=== PATIENT | female | born 1995 | race Hispanic/Latino ===

== ENCOUNTER 2020-05-13 18:17 | Emergency (ER) | payer SELFPAY ==
[2020-05-13] MEDS ORDERED: ACETAMINOPHEN 500 MG TAB ONE (19:03)
[2020-05-13] MEDS ORDERED: CLINDAMYCIN 900MG/D5W 900 MG/50 ML IVPB IV ONE (19:25)
[2020-05-13] MEDS ORDERED: NA CHLORIDE 0.9% 2,000 ML ONE (19:25)
[2020-05-13] MEDS ORDERED: CEFTRIAXONE/SWI 1gm 1 GM/10 ML SYR ONE (19:25)
[2020-05-13] MEDS ORDERED: dexAMETHasone 10 MG/ML VIAL ONE (19:25)
[2020-05-13 19:49] LABS: Basophils % 0.2 % (0-1.3); Hematocrit 35.4 % (36.0-45.0); Lymphocytes % 4.6 % (15.3-44.8); MPV 8.8 fL (7.6-11.3); RBC Red Blood Cell Count 4.74 M/uL (3.86-4.86)
--- NOTE | 2020-05-13 19:57 | RAD REPORT ---
EXAM DESCRIPTION: CT - Soft Tissue Neck W/Contr CLINICAL HISTORY: PAIN Pain, swelling, fever COMPARISON: No comparisons TECHNIQUE All CT scans are performed using dose optimization technique as appropriate and may includ e automated exposure control or mA/KV adjustment according to patient size. FINDINGS: Significant enlargement of the palatine tonsils and lingual tonsils noted. No peritonsilla r abscess is seen. Multiple enlarged cervical lymph nodes are present, the largest at level II bilate rally on the right measuring 14 mm in short axis and on the left measuring 13 mm in short axis. No prevertebral/retropharyngeal abscess. IMPRESSION: Significant enlargement of the palatine and lingual tonsils without peritonsillar absces s. No prevertebral/retropharyngeal abscess. Enlarged bilateral jugular chain lymph nodes are present suggesting cervical lymphadenitis.
[2020-05-13 20:01] LABS: ALT/SGPT 20 U/L (12-78); AST/SGOT 12 U/L (15-37); Albumin 3.3 g/dL (3.4-5.0); Alkaline Phosphatase 73 U/L (45-117); BUN Blood Urea Nitrogen 6 mg/dL (7-18); Bicarbonate 21 mmol/L (21-32); Bilirubin Total 0.4 mg/dL (0.2-1.0); Glucose Level 124 mg/dL (74-106); Potassium 3.5 mmol/L (3.5-5.1); Protein, Total 8.2 g/dL (6.4-8.2); Sodium Level 134 mmol/L (136-145)
--- NOTE | 2020-05-13 20:04 | RAD REPORT ---
EXAM DESCRIPTION: RAD - Chest Single View - 05/13/2020 7:57 pm CLINICAL HISTORY: fever;Pain Chest pain. COMPARISON: No comparisons FINDINGS: Portable technique limits examination quality. The lungs are grossly clear. The heart is normal in size. No displaced fractures. IMPRESSION: No acute intrathoracic process suspected.
--- NOTE | 2020-05-13 20:37 | ER ---
Nurse's Notes [facility] Name: Alka Rao Age: 24 yrs Sex: Female : 1995 Arrival Date: 05/13/2020 Time: 18:37 Bed 8 Private MD: Diagnosis: Acute tonsillitis;Streptococcal tonsillitis Presentation: 05/13 18:41 Chief complaint: Patient states: Sore throat, nausea chills, fatigue since last night. ca1 Denies cough. Coronavirus screen: Client denies travel out of the [place] in the last 14 days. chills, fatigue, nausea, sore throat, Client presents with at least one sign or symptom that may indicate coronavirus-19. Standard/surgical mask placed on the client. Provider contacted for isolation considerations. Ebola Screen: Patient negative for fever greater than or equal to 101.5 degrees Fahrenheit, and additional compatible Ebola Virus Disease symptoms Patient denies exposure to infectious person. Patient denies travel to an Ebola-affected area in the 21 days before illness onset. No symptoms or risks identified at this time. Initial Sepsis Screen:. Initial Sepsis Screen:. Risk Assessment: Do you want to hurt yourself or someone else? Patient reports no desire to harm self or others. Onset of symptoms was May 13, 2020. 18:41 Acuity: SHELIA 2 ca1 18:41 Method Of Arrival: Ambulatory ca1 18:49 Initial Sepsis Screen: Does the patient meet any 2 criteria? Temp <36.0*C (96.8*F)) or ca1 > 38.3*C (100.9*F). HR > 90 bpm. Does the patient have a suspected source of infection? No. Patient's initial sepsis screen is negative. Triage Assessment: 18:49 General: Appears in no apparent distress. comfortable, Behavior is calm, cooperative, ca1 appropriate for age. Pain: Complains of pain in throat. EENT: Throat is reddened has enlarged tonsils bilaterally. 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 - Social history:: Smoking status: Patient denies any tobacco usage or history of. Screenin:59 Abuse screen: Denies threats or abuse. Denies injuries from another. Nutritional rv screening: No deficits noted. Tuberculosis screening: No symptoms or risk factors identified. Fall Risk None identified. Assessment: 18:50 Reassessment:. EENT: Throat is reddened has enlarged tonsils bilaterally Notified Dr. lee Caba. . 19:59 Respiratory: Airway is patent Respiratory effort is even, unlabored, Breath sounds are rv clear bilaterally. 20:47 Reassessment: Patient and/or family updated on plan of care and expected duration. Pain rv level reassessed. Patient is alert, oriented x 3, equal unlabored respirations, skin warm/dry/pink. Patient states feeling better. Patient states symptoms have improved. Neuro: Level of Consciousness is awake, alert, obeys commands, Oriented to person, place, time, situation. Cardiovascular: Patient's skin is warm and dry. Respiratory: Airway is patent Respiratory effort is even, unlabored. Vital Signs: 18:41 BP 131 / 88; Pulse 162; Resp 20; Temp 103.2(O); Pulse Ox 100% on R/A; Weight 77.11 kg ca1 (M); Height 5 ft. 4 in. (162.56 cm) (R); 18:55 Pulse 145; ca1 19:30 BP 112 / 62; Pulse 137; Resp 25; Temp 102(O); Pulse Ox 100% on R/A; rv 20:46 BP 112 / 79; Pulse 123; Resp 18; Temp 99.5(O); Pulse Ox 99% on R/A; rv 18:41 Body Mass Index 29.18 (77.11 kg, 162.56 cm) ca1 ED Course: 18:37 Patient arrived in ED. ca1 18:43 Triage completed. ca1 18:43 Arm band placed on right wrist. ca1 18:51 Itz Caba MD is Attending Physician. patricia 18:57 Radiology exam delayed due to IV insertion attempt and/or patient not having vm2 appropriate IV at this time. 19:25 Inserted saline lock: 18 gauge in right antecubital area, using aseptic technique. rv Blood collected. 19:25 Initial lab(s) drawn, by me, sent to lab. First set of blood cultures drawn by me. rv 19:41 Zander Palumbo RN is Primary Nurse. rv 19:44 Soft Tissue Neck W/Contr CT In Process Unspecified. EDMS 19:45 Second set of blood cultures drawn by me. rv 19:58 Chest Single View XRAY In Process Unspecified. EDMS 19:59 Patient has correct armband on for positive identification. Bed in low position. Call rv light in reach. Side rails up X 1. Pulse ox on. NIBP on. 20:03 Notified ED physician of a critical lab result(s). WBC 20.8. sg 20:35 Niesha Morrow MD is Referral Physician. patricia Administered Medications: 18:55 Drug: Tylenol 1000 mg Route: PO; ca1 20:52 Follow up: Response: No adverse reaction; Marked relief of symptoms; Temperature is rv decreased 19:09 CANCELLED (Duplicate Order): Tylenol 1000 mg PO once sv 19:30 Drug: NS 0.9% 1000 ml Route: IV; Rate: 1 bolus; Site: right antecubital; rv 20:52 Follow up: IV Status: Completed infusion; IV Intake: 1000ml rv 19:30 Drug: Rocephin - (cefTRIAXone) 1 grams Route: IVPB; Infused Over: 30 mins; Site: right rv antecubital; 20:52 Follow up: Response: No adverse reaction rv 19:30 Drug: Clindamycin 900 mg Route: IVPB; Infused Over: 30 mins; Site: right antecubital; rv 20:52 Follow up: IV Status: Completed infusion; IV Intake: 50ml rv 19:30 Drug: Decadron - Dexamethasone 10 mg Route: IVP; Site: right antecubital; rv 20:51 Follow up: Response: Marked relief of symptoms rv 19:45 Drug: NS 0.9% 1000 ml Route: IV; Rate: 1 bolus; Site: right antecubital; rv 20:51 Follow up: IV Status: Completed infusion; IV Intake: 1000ml rv Intake: 20:51 IV: 1000ml; Total: 1000ml. rv 20:52 IV: 50ml; Total: 1050ml. rv 20:52 IV: 1000ml; Total: 2050ml. rv Outcome: 20:36 Discharge ordered by . patricia 20:52 Patient left the ED. rv Signatures: Dispatcher [employer] EDMS Acevedo, Ilir, RN RN Itz Cm MD MD cha McGuire, Stacia [facility] Zander Palumbo, RN RN rv Yessica, KAYLYNN Gallagher RN ca1 Luisa, Niesha CHAIDEZ sv
--- NOTE | 2020-05-13 20:37 | EDPHYS ---
Physician Documentation [facility] Name: Alka Rao Age: 24 yrs Sex: Female : 1995 Arrival Date: 05/13/2020 Time: 18:37 Bed 8 Private MD: ED Physician Itz Caba HPI: 05/13 20:29 This 24 yrs old Female presents to ER via Ambulatory with complaints of Sore patricia Throat. 20:29 The patient presents with sore throat. The patient describes throat pain as burning, patricia constant. Onset: The symptoms/episode began/occurred 2 day(s) ago. Severity of symptoms: At their worst the symptoms were mild, moderate, in the emergency department the symptoms are unchanged. Modifying factors: The symptoms are alleviated by fluids, the symptoms are aggravated by swallowing. Associated signs and symptoms: Pertinent positives: chills, dysphagia, headache, Sore throat. The patient has not experienced similar symptoms in the past. 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 - Social history:: Smoking status: Patient denies any tobacco usage or history of. ROS: 20:31 Eyes: Negative for injury, pain, redness, and discharge, Neck: Negative for injury, patricia pain, and swelling, Cardiovascular: Negative for chest pain, palpitations, and edema, Respiratory: Negative for shortness of breath, cough, wheezing, and pleuritic chest pain, Abdomen/GI: Negative for abdominal pain, nausea, vomiting, diarrhea, and constipation, Back: Negative for injury and pain, : Negative for injury, bleeding, discharge, and swelling, MS/Extremity: Negative for injury and deformity, Skin: Negative for injury, rash, and discoloration, Neuro: Negative for headache, weakness, numbness, tingling, and seizure, Psych: Negative for depression, anxiety, suicide ideation, homicidal ideation, and hallucinations, Allergy/Immunology: Negative for hives, rash, and allergies, Endocrine: Negative for neck swelling, polydipsia, polyuria, polyphagia, and marked weight changes, Hematologic/Lymphatic: Negative for swollen nodes, abnormal bleeding, and unusual bruising. 20:31 Constitutional: Positive for chills, fever, malaise. 20:31 ENT: Positive for rhinorrhea, sore throat. Exam: 20:31 Head/Face: Normocephalic, atraumatic. Eyes: Pupils equal round and reactive to light, patricia extra-ocular motions intact. Lids and lashes normal. Conjunctiva and sclera are non-icteric and not injected. Cornea within normal limits. Periorbital areas with no swelling, redness, or edema. Neck: Trachea midline, no thyromegaly or masses palpated, and no cervical lymphadenopathy. Supple, full range of motion without nuchal rigidity, or vertebral point tenderness. No Meningismus. Chest/axilla: Normal chest wall appearance and motion. Nontender with no deformity. No lesions are appreciated. Cardiovascular: Regular rate and rhythm with a normal S1 and S2. No gallops, murmurs, or rubs. Normal PMI, no JVD. No pulse deficits. Respiratory: Lungs have equal breath sounds bilaterally, clear to auscultation and percussion. No rales, rhonchi or wheezes noted. No increased work of breathing, no retractions or nasal flaring. Abdomen/GI: Soft, non-tender, with normal bowel sounds. No distension or tympany. No guarding or rebound. No evidence of tenderness throughout. Back: No spinal tenderness. No costovertebral tenderness. Full range of motion. Skin: Warm, dry with normal turgor. Normal color with no rashes, no lesions, and no evidence of cellulitis. MS/ Extremity: Pulses equal, no cyanosis. Neurovascular intact. Full, normal range of motion. Neuro: Awake and alert, GCS 15, oriented to person, place, time, and situation. Cranial nerves II-XII grossly intact. Motor strength 5/5 in all extremities. Sensory grossly intact. Cerebellar exam normal. Normal gait. Psych: Awake, alert, with orientation to person, place and time. Behavior, mood, and affect are within normal limits. 20:31 ENT: External ear(s): are unremarkable, no acute changes, TM's: are normal, no acute changes, Nose: is normal, no acute changes, Posterior pharynx: Tonsils: bilaterally enlarged, with erythema, with exudate, Uvula: edematous, swelling, that is moderate, erythema, that is moderate, exudate, that is moderate. 20:31 Neck: External neck: is normal, no acute changes, C-spine: appears grossly normal, no acute changes, Thyroid: appears normal, no acute changes, Trachea: is midline with no obvious abnormalities, no acute changes, ROM/movement: is normal, no acute changes, Lymph nodes: lymphadenopathy is appreciated, anterior cervical nodes. 20:31 Cardiovascular: Rate: tachycardic, Rhythm: regular, Pulses: Pulses are 4+ in bilateral radial, brachial, femoral, popliteal, posterior tibial and and dorsalis pedis arteries.. Heart sounds: normal, Edema: is not appreciated, JVD: is not appreciated. 20:31 Musculoskeletal/extremity: DVT Exam: No signs of deep vein thrombosis. no pain, no swelling, no tenderness, negative Homans' sign noted on exam, no appreciated bluish discoloration, no erythema, no increased warmth. Vital Signs: 18:41 BP 131 / 88; Pulse 162; Resp 20; Temp 103.2(O); Pulse Ox 100% on R/A; Weight 77.11 kg ca1 (M); Height 5 ft. 4 in. (162.56 cm) (R); 18:55 Pulse 145; ca1 19:30 BP 112 / 62; Pulse 137; Resp 25; Temp 102(O); Pulse Ox 100% on R/A; rv 20:46 BP 112 / 79; Pulse 123; Resp 18; Temp 99.5(O); Pulse Ox 99% on R/A; rv 18:41 Body Mass Index 29.18 (77.11 kg, 162.56 cm) ca1 MDM: 18:51 Patient medically screened. patricia 20:31 Differential diagnosis: pneumonia epiglottitis, group A strep tonsillitis, laryngitis, patricia ana's angina, neisseria gonorrheoeae pharangitis, pharyngitis, tonsillitis, upper respiratory infection. Data reviewed: vital signs, nurses notes, lab test result(s), CBC, electrolytes, radiologic studies, CT scan, plain films. Data interpreted: news producer: not applicable for this patient encounter. rate is 137 beats/min, rhythm is regular. Test interpretation: by ED physician or midlevel provider: ECG. Counseling: I had a detailed discussion with the patient and/or guardian regarding: the historical points, exam findings, and any diagnostic results supporting the discharge/admit diagnosis, lab results, the need for outpatient follow up, an ENT specialist, a family practitioner. 05/13 18:54 Order name: CBC with Diff [facility] 05/13 18:54 Order name: Comprehensive Metabolic Panel; Complete Time: 20:27 [facility] 05/13 18:54 Order name: Blood Culture Adult (2) [facility] 05/13 18:54 Order name: Urine Culture [facility] 05/13 18:54 Order name: Strep; Complete Time: 20:27 [facility] 05/13 18:54 Order name: Soft Tissue Neck W/Contr CT; Complete Time: 20:27 [facility] 05/13 18:54 Order name: Chest Single View XRAY; Complete Time: 20:27 [facility] 05/13 20:35 Order name: Urine Dipstick--Ancillary (enter results) ar5 05/13 20:36 Order name: Urine Dipstick-Ancillary EDMS 05/13 20:44 Order name: Manual Differential EDMS Administered Medications: 18:55 Drug: Tylenol 1000 mg Route: PO; ca1 20:52 Follow up: Response: No adverse reaction; Marked relief of symptoms; Temperature is rv decreased 19:09 CANCELLED (Duplicate Order): Tylenol 1000 mg PO once sv 19:30 Drug: NS 0.9% 1000 ml Route: IV; Rate: 1 bolus; Site: right antecubital; rv 20:52 Follow up: IV Status: Completed infusion; IV Intake: 1000ml rv 19:30 Drug: Rocephin - (cefTRIAXone) 1 grams Route: IVPB; Infused Over: 30 mins; Site: right rv antecubital; 20:52 Follow up: Response: No adverse reaction rv 19:30 Drug: Clindamycin 900 mg Route: IVPB; Infused Over: 30 mins; Site: right antecubital; rv 20:52 Follow up: IV Status: Completed infusion; IV Intake: 50ml rv 19:30 Drug: Decadron - Dexamethasone 10 mg Route: IVP; Site: right antecubital; rv 20:51 Follow up: Response: Marked relief of symptoms rv 19:45 Drug: NS 0.9% 1000 ml Route: IV; Rate: 1 bolus; Site: right antecubital; rv 20:51 Follow up: IV Status: Completed infusion; IV Intake: 1000ml rv Disposition: 05/13/20 20:36 Discharged to Home. Impression: Acute tonsillitis, Streptococcal tonsillitis. - Condition is Stable. - Discharge Instructions: Fever, Adult, Tonsillitis, Tonsillitis, [id number]. - Prescriptions for Clindamycin HCl 300 mg Oral Capsule - take 1 capsule by ORAL route every 6 hours for 10 days; 40 capsule. Medrol (Aneudy) 4 mg Oral Tablets, Dose Pack - take 1 tablet by ORAL route as directed - follow package instructions; 1 packet. - Work release form, Medication Reconciliation Form, Thank You Letter, Antibiotic Education, Prescription Opioid Use form. - Follow up: Private Physician; When: 2 - 3 days; Reason: Recheck today's complaints, Continuance of care, Re-evaluation by your physician. Follow up: Niesha Morrow MD; When: 2 - 3 days; Reason: Recheck today's complaints, Re-evaluation by your physician. - Problem is new. - Symptoms have improved. Signatures: Dispatcher [employer] [facility] Itz Caba MD MD cha Vicente, Ronaldo RN RN jean-paul Acob, KAYLYNN Gallagher RN, Stephanie RN sv Corrections: (The following items were deleted from the chart) 19:09 18:54 Tylenol 1000 mg PO once ordered. patricia 20:44 19:58 CBC Smear Scan ordered. [facility] 20:52 20:36 05/13/2020 20:36 Discharged to Home. Impression: Acute tonsillitis; Streptococcal rv tonsillitis. Condition is Stable. Forms are Medication Reconciliation Form, Thank You Letter, Antibiotic Education, Prescription Opioid Use. Follow up: Private Physician; When: 2 - 3 days; Reason: Recheck today's complaints, Continuance of care, Re-evaluation by your physician. Follow up: Niesha Morrow; When: 2 - 3 days; Reason: Recheck today's complaints, Re-evaluation by your physician. Problem is new. Symptoms have improved. patricia
[2020-05-13 20:51] LABS: Urine Blood NEGATIVE (NEG); Urine Glucose NEGATIVE (NEG); Urine Protein NEGATIVE (NEG); Urine Specific Gravity <1.005 (1.005-1.030)
[2020-05-13 21:05] VITALS: BP 112/79; TEMP 99.5; O2SAT 99
[2020-05-13 22:06] LABS: Blood Morphology Comment NOT SEEN (NOT SEEN); Platelet Estimate ADEQ
== END 2020-05-13 20:52 | disposition home or self-care (01) ==
LOC: ER 18:17
DX: J03.00 Acute streptococcal tonsillitis, unspecified (principal)
CPT/HCPCS: 36415; 70491; 71045; 80053; 81003; 82565; 85025; 87040; 87081; 87086; 87088; J0696; J1100; J7030; Q9967

== ENCOUNTER 2022-04-27 15:07 | Emergency (ER) | payer OTHER, SELFPAY ==
--- NOTE | 2022-04-27 17:11 | RAD REPORT ---
EXAM DESCRIPTION: CT - [id number] - 04/27/2022 5:00 pm CLINICAL HISTORY: Trauma, head and neck injury. head injury COMPARISON: Soft Tissue Neck W/Contr dated 05/13/2020; Facial Bones W/ Mpr dated 04/27/2022 TECHNIQUE: Axial 5 mm thick images of the head were obtained. Axial 2 mm thick images of the cervical spine were obtained with sagittal and coronal reconstruction images generated and reviewed. All CT scans are performed using dose optimization technique as appropriate and may include automated exposure control or mA/KV adjustment according to patient size. FINDINGS: CT HEAD WITHOUT CONTRAST: No acute hemorrhage, hydrocephalus or extra-axial collection is identified.No areas of brain edema or midline shift. The paranasal sinuses and mastoids are clear.The calvarium is intact. CT CERVICAL SPINE WITHOUT CONTRAST: No fracture or subluxation.No prevertebral soft tissues swelling is identified. IMPRESSION: No acute intracranial or cervical spine findings.
--- NOTE | 2022-04-27 17:15 | RAD REPORT ---
EXAM DESCRIPTION: CT - CTFB CLINICAL HISTORY: Facial trauma, blunt COMPARISON: No comparisons TECHNIQUE: Axial 2 mm thick images of the face were obtained with sagittal and coronal reconstructio n images. All CT scans are performed using dose optimization technique as appropriate and may include automated exposure control or mA/KV adjustment according to patient size. FINDINGS: No acute facial bone fracture is seen.The mandible is intact. The globes and orbital contents are grossly unremarkable.The paranasal sinuses and mastoids are clear . IMPRESSION: Negative for facial bone fracture.
[2022-04-27] MEDS ORDERED: HYDROCODONE/APAP 7.5/325 MG TAB ONE (17:32)
[2022-04-27] MEDS ORDERED: IBUPROFEN 400 MG TAB ONE (17:32)
[2022-04-27 19:07] VITALS: TEMP 98.1
[2022-04-27 19:10] VITALS: BP 124/80; O2SAT 100
--- NOTE | 2022-04-29 09:38 | ER ---
Nurse's Notes [facility] Name: Alka Rao Age: 26 yrs Sex: Female : 1995 Arrival Date: 04/27/2022 Time: 15:10 Bed 20 Private MD: Diagnosis: Unspecified injury of head, initial encounter;Abrasion of unspecified part of head, initial encounter Presentation: 04/27 15:38 Chief complaint: Patient states: pt fall x 2 days ago while intoxicated. injuries to scott forehead, bridge of nose, left side of nose upper lip. pt having headaches and have nausea. Care prior to arrival: None. Mechanism of Injury: Fall. Trauma event details: Injury occurred: April 25, 2022. 15:38 Acuity: SHELIA 3 scott 15:38 Method Of Arrival: Ambulatory scott Historical: - Allergies: 17:35 No Known Allergies; bm7 - Home Meds: 17:35 None [Active]; bm7 - PMHx: 17:35 None; bm7 - PSHx: 17:35 None; bm7 - Immunization history: Last tetanus immunization: unknown. - Social history:: Smoking status: Patient reports the use of cigarette tobacco products, denies chronic smoking, but will smoke occasionally, Patient uses alcohol, only on a social basis. Screenin:35 Abuse screen: Denies threats or abuse. Nutritional screening: No deficits noted. bm7 Tuberculosis screening: No symptoms or risk factors identified. Fall Risk None identified. Assessment: 15:38 General: Appears in no apparent distress. Behavior is calm, cooperative. scott 17:34 Pain: Complains of pain in face. Neuro: No deficits noted. Lynch Agitation-Sedation bm7 Scale (RASS): 0 - Alert and Calm Level of Consciousness is awake, alert, obeys commands, Oriented to person, place, time, situation, Glass Crusher are equal bilaterally Moves all extremities. Speech is normal, Facial symmetry appears normal. Cardiovascular: No deficits noted. Respiratory: No deficits noted. GI: No deficits noted. No signs and/or symptoms were reported involving the gastrointestinal system. : No deficits noted. No signs and/or symptoms were reported regarding the genitourinary system. EENT: No deficits noted. No signs and/or symptoms were reported regarding the EENT system. Derm: Skin has lesions on to bridge of nose. Musculoskeletal: No deficits noted. No signs and/or symptoms reported regarding the musculoskeletal system. Vital Signs: 15:55 BP 146 / 81; Pulse 92; Resp 19; Temp 98.1(T); Pulse Ox 96% on R/A; Weight 95.25 kg; sctot Height 5 ft. 3 in. (160.02 cm); 17:09 BP 124 / 80; Pulse 82; Resp 16; Pulse Ox 100% on R/A; bm7 15:55 Body Mass Index 37.20 (95.25 kg, 160.02 cm) scott [place] Coma Score: 16:25 Eye Response: spontaneous(4). Verbal Response: oriented(5). Motor Response: obeys cp commands(6). Total: 15. ED Course: 15:10 Patient arrived in ED. ja2 15:13 Itz Thompson PA is PHCP. cp 15:13 Andrea Jamison MD is Attending Physician. cp 15:40 Triage completed. scott 17:01 Carolin Cortez, KAYLYNN is Primary Nurse. bm7 17:02 CT Head C Spine In Process Unspecified. EDMS 17:02 CT Facial Bones W/O Con In Process Unspecified. EDMS 17:24 Jagjit Smith MD is Referral Physician. cp 17:35 Patient has correct armband on for positive identification. Call light in reach. bm7 17:35 Client placed on continuous cardiac and pulse oximetry monitoring. NIBP monitoring bm7 applied. 17:35 No provider procedures requiring assistance completed. Patient did not have IV access bm7 during this emergency room visit. Administered Medications: 17:25 Not Given (Physician Discretion): Tylenol 650 mg PO once bm7 17:25 Drug: Ibuprofen 800 mg Route: PO; bm7 17:36 Follow up: Response: No adverse reaction bm7 17:26 Drug: Hydrocodone-Acetaminophen (7.5 mg-325 mg) 1 tabs Route: PO; bm7 17:36 Follow up: Response: No adverse reaction bm7 Medication: 17:35 VIS not applicable for this client. bm7 Outcome: 17:27 Discharge ordered by MD. cp 17:36 Patient left the ED. bm7 Signatures: Dispatcher [employer] EDAL Itz Thompson PA PA cp Carolin Cortez, RN RN bm7 Milena Mustafa ja2 Au-Stager, Gemma, RN RN scott
--- NOTE | 2022-04-29 09:38 | EDPHYS ---
Physician Documentation [facility] Name: Alka Rao Age: 26 yrs Sex: Female : 1995 Arrival Date: 04/27/2022 Time: 15:10 Bed 20 Private MD: ED Physician Andrea Jamison HPI: 04/27 16:25 This 26 yrs old Female presents to ER via Ambulatory with complaints of Fall cp Injury. 16:25 The patient or guardian reports injury. cp 16:25 The complaints affect the forehead, nose and mouth. Context of injury: reported fall cp while intoxicated 2 days ago, unsure of losing consciousness. Associated signs and symptoms: Pertinent positives: headache, Pertinent negatives: nausea, neck pain, vomiting. Historical: - Allergies: 17:35 No Known Allergies; bm7 - Home Meds: 17:35 None [Active]; bm7 - PMHx: 17:35 None; bm7 - PSHx: 17:35 None; bm7 - Immunization history: Last tetanus immunization: unknown. - Social history:: Smoking status: Patient reports the use of cigarette tobacco products, denies chronic smoking, but will smoke occasionally, Patient uses alcohol, only on a social basis. ROS: 16:30 Constitutional: Negative for body aches, chills, fever, poor PO intake. cp 16:30 Eyes: Negative for injury, pain, redness, and discharge. cp 16:30 ENT: Negative for drainage from ear(s), ear pain, sore throat, difficulty swallowing, difficulty handling secretions. 16:30 Cardiovascular: Negative for chest pain, palpitations. 16:30 Respiratory: Negative for cough, shortness of breath, wheezing. 16:30 Abdomen/GI: Negative for abdominal pain, nausea, vomiting, and diarrhea. 16:30 Back: Negative for pain at rest, pain with movement. 16:30 Neuro: Positive for headache, Negative for altered mental status, weakness. 16:30 All other systems are negative. Exam: 16:35 Constitutional: The patient appears in no acute distress, alert, awake, non-toxic, well cp developed, well nourished. 16:35 Head/face: Noted is abrasion(s), that are moderate, of the forehead, nose and mouth, cp swelling, that is mild, of the forehead, nose and mouth, tenderness, that is moderate, of the forehead, nose and mouth, Sinus tenderness, that is mild, is located over the left maxillary sinus. 16:35 Eyes: Periorbital structures: swelling, that is mild, on the left infraorbital, Pupils: equal, round, and reactive to light and accomodation, Extraocular movements: intact throughout, Conjunctiva: normal, no exudate, no injection, Sclera: no appreciated abnormality, Lids and lashes: appear normal, bilaterally. 16:35 ENT: External ear(s): are unremarkable, Ear canal(s): are normal, clear, TM's: dullness, bilaterally, Nose: External nose: swelling is noted, bridge of nose, bleeding, is not appreciated, Mouth: Lips: moist, Oral mucosa: moist, Posterior pharynx: Airway: no evidence of obstruction, patent. 16:35 Neck: C-spine: vertebral tenderness, is not appreciated, crepitus, is not appreciated, ROM/movement: is normal, is supple, without pain, no range of motions limitations, no nuchal rigidity. 16:35 Chest/axilla: Inspection: normal. 16:35 Cardiovascular: Rate: normal, Rhythm: regular. 16:35 Respiratory: the patient does not display signs of respiratory distress, Respirations: normal, no use of accessory muscles, no retractions, labored breathing, is not present, Breath sounds: are clear throughout, no decreased breath sounds, no stridor, no wheezing. 16:35 Abdomen/GI: Exam negative for discomfort, distension, guarding, Inspection: abdomen appears normal. 16:35 Back: pain, is absent, ROM is normal. 16:35 Musculoskeletal/extremity: Exam is negative for decreased range of motion, deformity, injury. 16:35 Neuro: Orientation: to person, place \T\ time. Mentation: is normal, Cerebellar function: is grossly normal, Motor: moves all fours, strength is normal, Sensation: is normal, Gait: is steady, at a normal pace, without difficulty. Vital Signs: 15:55 BP 146 / 81; Pulse 92; Resp 19; Temp 98.1(T); Pulse Ox 96% on R/A; Weight 95.25 kg; scott Height 5 ft. 3 in. (160.02 cm); 17:09 BP 124 / 80; Pulse 82; Resp 16; Pulse Ox 100% on R/A; bm7 15:55 Body Mass Index 37.20 (95.25 kg, 160.02 cm) scott Jose Coma Score: 16:25 Eye Response: spontaneous(4). Verbal Response: oriented(5). Motor Response: obeys cp commands(6). Total: 15. MDM: 17:10 Patient medically screened. cp 17:15 Differential diagnosis: Contusion of Hematoma on Intracranial bleed- Concussion cp cerebral contusion, facial bone fracture, nasal bone fracture, cellulitis. 17:27 Data reviewed: vital signs, nurses notes, radiologic studies, plain films. cp 17:27 Counseling: I had a detailed discussion with the patient and/or guardian regarding: the cp historical points, exam findings, and any diagnostic results supporting the discharge/admit diagnosis, radiology results, to return to the emergency department if symptoms worsen or persist or if there are any questions or concerns that arise at home. Response to treatment: the patient's symptoms have mildly improved after treatment. Special discussion: Based on the patient's history, exam and DX evaluation, there is no indication for emergent intervention or inpatient TX. It is understood by the patient/guardian that if the SXs persist or worsen they need to return immediately for re-evaluation. 04/27 16:24 Order name: CT Head C Spine; Complete Time: 17:14 cp 04/27 17:15 Interpretation: Reviewed report. 04/27 16:24 Order name: CT Facial Bones W/O Con; Complete Time: 17:16 cp Administered Medications: 17:25 Not Given (Physician Discretion): Tylenol 650 mg PO once bm7 17:25 Drug: Ibuprofen 800 mg Route: PO; bm7 17:36 Follow up: Response: No adverse reaction bm7 17:26 Drug: Hydrocodone-Acetaminophen (7.5 mg-325 mg) 1 tabs Route: PO; bm7 17:36 Follow up: Response: No adverse reaction bm7 Disposition: 18:58 Co-signature as Attending Physician, Andrea Jamison MD. rn Disposition Summary: 04/27/22 17:27 Discharge Ordered Location: Home cp Problem: new cp Symptoms: have improved cp Condition: Stable cp Diagnosis - Unspecified injury of head, initial encounter cp - Abrasion of unspecified part of head, initial encounter cp Followup: cp - With: Jagjit Smith MD - When: 2 - 3 days - Reason: Recheck today's complaints Discharge Instructions: - Discharge Summary Sheet cp - Abrasion cp - Concussion, Adult cp - Head Injury, Adult cp Forms: - Medication Reconciliation Form cp - Thank You Letter cp - Antibiotic Education cp - Prescription Opioid Use cp Prescriptions: - Ibuprofen 800 mg Oral Tablet - take 1 tablet by ORAL route every 8 hours As needed take with food; 30 tablet; cp Refills: 0, Product Selection Permitted - mupirocin 2 % Topical ointment - apply 1 application by TOPICAL route 3 times per day apply to facial abrasions cp as directed; 30 gram; Refills: 0, Product Selection Permitted Signatures: Dispatcher [employer] EDMS Andrea Jamison MD MD rn Page, Corey, PA PA cp McCarthy, Brittany, RN RN bm7 Gemma Macario RN RN scott
== END 2022-04-27 17:36 | disposition home or self-care (01) ==
LOC: ER 15:07
DX: S09.90XA Unspecified injury of head, initial encounter (principal); S00.81XA Abrasion of other part of head, initial encounter; F17.210 Nicotine dependence, cigarettes, uncomplicated
CPT/HCPCS: 70450; 70486; 72125; 76377; 99283

== ENCOUNTER 2022-05-01 11:59 | Emergency (ER) | payer OTHER ==
--- NOTE | 2022-05-01 12:49 | RAD REPORT ---
EXAM DESCRIPTION: CT - Head Brain Wo Cont - 05/01/2022 12:39 pm CLINICAL HISTORY: Headache/fall COMPARISON: April 27, 2022 TECHNIQUE: Computed axial tomography of the head was obtained. IV contrast was not requested. All CT scans are performed using dose optimization technique as appropriate and may include automated exposure control or mA/KV adjustment according to patient size. FINDINGS: An intracranial bleed is not seen . The ventricles are normal in caliber. No significant hypodense areas within the brain visualized No extra-axial fluid collection is noted. Fluid within the sinuses/ mastoids is not seen. IMPRESSION: No acute intracranial abnormality is seen. If patient's symptoms persist MRI of the bra in would be recommended.
--- NOTE | 2022-05-01 13:00 | ER ---
Nurse's Notes [facility] Name: Alka Rao Age: 26 yrs Sex: Female : 1995 Arrival Date: 05/01/2022 Time: 12:00 Bed 25 Private MD: Diagnosis: Fall on same level, unspecified;Acute post-traumatic headache Presentation: 05/01 12:05 Chief complaint: Patient states: she was seen here 2 days ago for a concussion, but ap3 states she has still been having bad headaches and thought she could "thug it out". patient states she tripped and fell this morning over clutter in the living room and hit her head the floor. The floor is carpeted. Patient denies LOC. Patient presents to the ED complaining of a headache and nausea at this time. Coronavirus screen: At this time, the client does not indicate any symptoms associated with coronavirus-19. Ebola Screen: No symptoms or risks identified at this time. Initial Sepsis Screen: Does the patient meet any 2 criteria? No. Patient's initial sepsis screen is negative. Does the patient have a suspected source of infection? No. Patient's initial sepsis screen is negative. Risk Assessment: Do you want to hurt yourself or someone else? Patient reports no desire to harm self or others. Onset of symptoms was May 01, 2022. 12:05 Method Of Arrival: Ambulatory ap3 12:05 Acuity: SHELIA 3 ap3 Triage Assessment: 12:08 General: Appears uncomfortable, Behavior is calm, cooperative. Pain: Complains of pain ap3 in face Pain currently is 9 out of 10 on a pain scale. Neuro: Level of Consciousness is awake, alert, obeys commands, Oriented to person, place, time, situation, Appropriate for age Speech is normal. Cardiovascular: Patient's skin is warm and dry. Respiratory: Airway is patent Respiratory effort is even, unlabored. GI: Reports nausea. 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 - Social history:: Smoking status: Patient denies any tobacco usage or history of. Screenin:09 Abuse screen: Denies threats or abuse. Nutritional screening: No deficits noted. ap3 Tuberculosis screening: No symptoms or risk factors identified. Fall Risk Fall in past 12 months (25 points). No secondary diagnosis (0 pts). No IV (0 pts). Ambulatory Aid- None/Bed Rest/Nurse Assist (0 pts). Gait- Weak (10 pts.). Mental Status- Oriented to own ability (0 pts). Total Fernandez Fall Scale indicates Low Risk Score (25-44 pts). Fall prevention measures have been instituted. Side Rails Up X 2 Placed close to Nursing Station Frequent Obs/Assesments occuring As available Patient and Family Educated on Fall Prevention Program and strategies. Assessment: 12:15 General: Appears in no apparent distress. Behavior is calm, cooperative. Neuro: Level hb of Consciousness is awake, alert, obeys commands, Oriented to person, place, time, situation. Cardiovascular: Patient's skin is warm and dry. Respiratory: Respiratory effort is even, unlabored, Respiratory pattern is regular, symmetrical. 12:26 Reassessment: Pt ambulated to bathroom unassisted, with steady gait. hb 13:04 Reassessment: Patient appears in no apparent distress at this time. Patient and/or hb family updated on plan of care and expected duration. Pain level reassessed. Patient is alert, oriented x 3, equal unlabored respirations, skin warm/dry/pink. Vital Signs: 12:05 BP 133 / 88; Pulse 116; Resp 18; Temp 98.4; Pulse Ox 99% ; Weight 81.65 kg; Height 5 ap3 ft. 3 in. (160.02 cm); 12:05 Body Mass Index 31.89 (81.65 kg, 160.02 cm) ap3 ED Course: 12:00 Patient arrived in ED. am2 12:06 Jorge Vee is PHCP. jl9 12:06 Cayetano Joy MD is Attending Physician. jl9 12:07 Triage completed. ap3 12:10 Arm band placed on right wrist. ap3 12:15 Patient has correct armband on for positive identification. hb 12:17 Gemma Headley, RN is Primary Nurse. hb 12:41 CT Head Brain wo Cont In Process Unspecified. EDMS 13:04 No provider procedures requiring assistance completed. Patient did not have IV access hb during this emergency room visit. Administered Medications: 12:55 Drug: Ibuprofen 800 mg Route: PO; hb 13:16 Follow up: Response: No adverse reaction hb 13:00 Drug: Ketorolac 30 mg Route: IM; Site: left deltoid; hb 13:16 Follow up: Response: No adverse reaction hb Medication: 12:15 VIS not applicable for this client. hb Outcome: 12:59 Discharge ordered by MD. guo 13:04 Discharged to home ambulatory. hb 13:04 Condition: stable 13:04 Discharge instructions given to patient, Instructed on discharge instructions, follow up and referral plans. Demonstrated understanding of instructions, follow-up care. 13:16 Patient left the ED. hb Signatures: Dispatcher [employer] EDMS Gemma Headley RN RN hb Leeann Jenkins Amanda, RN RN ap3 Jorge Vee9 Corrections: (The following items were deleted from the chart) 12:09 12:05 Chief complaint: Patient states: she was seen here 2 days ago for a concussion, ap3 but states she has still been having bad headaches and thought she could "thug it out". patient states she tripped and fell this morning over clutter in the living room and hit her head the floor. The floor is carpeted. Patient denies LOC. ap3
--- NOTE | 2022-05-01 13:00 | EDPHYS ---
Physician Documentation [facility] Name: Alka Rao Age: 26 yrs Sex: Female : 1995 Arrival Date: 05/01/2022 Time: 12:00 Bed 25 Private MD: ED Physician Cayetano Joy HPI: 05/01 12:52 This 26 yrs old Female presents to ER via Ambulatory with complaints of Fall jl9 Injury, Headache. 12:52 Details of fall: The patient fell from an upright position, while walking. Onset: The jl9 symptoms/episode began/occurred just prior to arrival. Associated injuries: The patient sustained injury to the head, pain. Severity of symptoms: At their worst the symptoms were a " 4" out of "10". 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 - Social history:: Smoking status: Patient denies any tobacco usage or history of. ROS: 12:53 Constitutional: Negative for fever, chills, and weight loss, Eyes: Negative for injury, jl9 pain, redness, and discharge, ENT: Negative for injury, pain, and discharge, Neck: Negative for injury, pain, and swelling, Cardiovascular: Negative for chest pain, palpitations, and edema, Respiratory: Negative for shortness of breath, cough, wheezing, and pleuritic chest pain, Abdomen/GI: Negative for abdominal pain, nausea, vomiting, diarrhea, and constipation, Back: Negative for injury and pain, MS/Extremity: Negative for injury and deformity, Skin: Negative for injury, rash, and discoloration. 12:53 Psych: Negative for depression, anxiety, suicide ideation, homicidal ideation, and hallucinations, Allergy/Immunology: Negative for hives, rash, and allergies, Endocrine: Negative for neck swelling, polydipsia, polyuria, polyphagia, and marked weight changes, Hematologic/Lymphatic: Negative for swollen nodes, abnormal bleeding, and unusual bruising. 12:53 Neuro: Positive for headache. Exam: 12:54 Constitutional: This is a well developed, well nourished patient who is awake, alert, jl9 and in no acute distress. Head/Face: Normocephalic, atraumatic. Eyes: Pupils equal round and reactive to light, extra-ocular motions intact. Lids and lashes normal. Conjunctiva and sclera are non-icteric and not injected. Cornea within normal limits. Periorbital areas with no swelling, redness, or edema. ENT: Mucous membranes moist. Neck: Trachea midline, no thyromegaly or masses palpated, and no cervical lymphadenopathy. Supple, full range of motion without nuchal rigidity, or vertebral point tenderness. No Meningismus. Chest/axilla: Normal chest wall appearance and motion. Nontender with no deformity. No lesions are appreciated. Cardiovascular: Regular rate and rhythm with a normal S1 and S2. No gallops, murmurs, or rubs. Normal PMI, no JVD. No pulse deficits. Respiratory: Lungs have equal breath sounds bilaterally, clear to auscultation and percussion. No rales, rhonchi or wheezes noted. No increased work of breathing, no retractions or nasal flaring. Abdomen/GI: Soft, non-tender, with normal bowel sounds. No distension or tympany. No guarding or rebound. No evidence of tenderness throughout. Back: No spinal tenderness. No costovertebral tenderness. Full range of motion. Skin: Warm, dry with normal turgor. Normal color with no rashes, no lesions, and no evidence of cellulitis. MS/ Extremity: Pulses equal, no cyanosis. Neurovascular intact. Full, normal range of motion. Neuro: Awake and alert, GCS 15, oriented to person, place, time, and situation. Cranial nerves II-XII grossly intact. Motor strength 5/5 in all extremities. Sensory grossly intact. Cerebellar exam normal. Normal gait. Psych: Awake, alert, with orientation to person, place and time. Behavior, mood, and affect are within normal limits. Vital Signs: 12:05 BP 133 / 88; Pulse 116; Resp 18; Temp 98.4; Pulse Ox 99% ; Weight 81.65 kg; Height 5 ap3 ft. 3 in. (160.02 cm); 12:05 Body Mass Index 31.89 (81.65 kg, 160.02 cm) ap3 MDM: 12:13 Patient medically screened. jl9 13:00 Data reviewed: vital signs, nurses notes, radiologic studies. jl9 05/01 12:09 Order name: CT Head Brain wo Cont; Complete Time: 12:52 jl9 Administered Medications: 12:55 Drug: Ibuprofen 800 mg Route: PO; hb 13:16 Follow up: Response: No adverse reaction hb 13:00 Drug: Ketorolac 30 mg Route: IM; Site: left deltoid; hb 13:16 Follow up: Response: No adverse reaction hb Disposition: 15:42 Co-signature as Attending Physician, Cayetano Joy MD I agree with the assessment and kdr plan of care. Disposition Summary: 05/01/22 12:59 Discharge Ordered Location: Home jl9 Condition: Stable jl9 Diagnosis - Fall on same level, unspecified jl9 - Acute post-traumatic headache jl9 Followup: jl9 - With: Private Physician - When: 1 - 2 days - Reason: Recheck today's complaints, Continuance of care, Re-evaluation by your physician Discharge Instructions: - Discharge Summary Sheet jl9 - Head Injury, Adult, [id number] jl9 Forms: - Medication Reconciliation Form jl9 - Thank You Letter jl9 - Antibiotic Education jl9 - Prescription Opioid Use jl9 Signatures: Dispatcher [employer] EDMS Cayetano Joy MD MD [facility] Gemma Headley RN RN Leeann Reyes RN RN Jorge Navarro jl9
[2022-05-01] MEDS ORDERED: IBUPROFEN 400 MG TAB ONE (13:02)
[2022-05-01] MEDS ORDERED: KETOROLAC 30 MG/ML INJ ONE (13:08)
[2022-05-01 13:23] VITALS: BP 133/88; TEMP 98.4; O2SAT 99
== END 2022-05-01 13:16 | disposition home or self-care (01) ==
LOC: ER 11:59
DX: G44.319 Acute post-traumatic headache, not intractable (principal); W18.30XA Fall on same level, unspecified, initial encounter; F32.A Depression, unspecified
CPT/HCPCS: 70450; 96372; 99283

== ENCOUNTER 2022-08-08 09:51 | Emergency (ER) | payer OTHER ==
[2022-08-08 10:59] LABS: Urine Blood 3+ (Negative); Urine Glucose Negative (Negative); Urine Protein 1+ (Negative); Urine Specific Gravity 1.025 (1.005-1.030)
[2022-08-08 11:07] LABS: Absolute Lymphocytes (CBC) 2.4 K/uL (0.7-4.9); Hematocrit 34.8 % (36.0-45.0); Lymphocytes % 33.3 % (15.3-44.8); MCV 82.8 fL (80-100)
[2022-08-08] MEDS ORDERED: LORAZEPAM 1 MG TABLET ONE (11:10)
[2022-08-08 11:19] LABS: Urine Bacteria <20 /HPF (<20); Urine Mucus Slight /HPF (None Seen); Urine RBC >50 /HPF (None Seen)
[2022-08-08 11:31] LABS: Bilirubin Total 0.4 mg/dL (0.2-1.0); Potassium 3.5 mmol/L (3.5-5.1); Protein, Total 7.4 g/dL (6.4-8.2)
[2022-08-08 12:29] LABS: Urine Specific Gravity/Preg 1.025 (1.005-1.030)
--- NOTE | 2022-08-08 12:36 | RAD REPORT ---
EXAM DESCRIPTION: US - TRANSVAG OB - 08/08/2022 12:20 pm CLINICAL HISTORY: VAGINAL BLEEDING COMPARISON: No comparisons FINDINGS: Uterus measures 9.2 cm. The endometrial echo complex measures 13 millimeters. Note sagitta l sac is identified. The right ovary measures 2.9 x 1.6 x 1.8 cm with volume of 4.4 cc. The left ovar y measures 2.8 x 1.5 cm with volume of 3.3 cc. Bilateral ovarian blood flow is poor. IMPRESSION: No IUP identified. Cannot exclude early ectopic, or early normal IUP, or failed first tr imester . Bilateral ovarian blood flow is present.
[2022-08-08] MEDS ORDERED: ACETAMINOPHEN 500 MG TAB ONE (13:30)
--- NOTE | 2022-08-08 15:30 | ER ---
Nurse's Notes [facility] Name: Alka Rao Age: 26 yrs Sex: Female : 1995 Arrival Date: 08/08/2022 Time: 09:52 Bed 16 Private MD: Diagnosis: Threatened ;Anxiety disorder, unspecified Presentation: 08/08 10:09 Chief complaint: Patient states: LMP 06/22/22, reports never having cramps or blood jl7 clots in her life, reports cramping started last night, went to the bathroom at 0100 and there was a golf ball sized clot in the toilet, continued cramping and bleeding today. Also reports out of anxiety medication x 1 week, 1 mg Ativan and reporting anxiety now. Coronavirus screen: Vaccine status: Patient reports receiving the 1st dose of the Covid vaccine. At this time, the client does not indicate any symptoms associated with coronavirus-19. Ebola Screen: No symptoms or risks identified at this time. Initial Sepsis Screen: Does the patient meet any 2 criteria? No. Patient's initial sepsis screen is negative. Does the patient have a suspected source of infection? No. Patient's initial sepsis screen is negative. Risk Assessment: Do you want to hurt yourself or someone else? Patient reports no desire to harm self or others. Onset of symptoms was August 07, 2022. 10:09 Method Of Arrival: Ambulatory jl7 10:09 Acuity: SHELIA 3 jl7 Triage Assessment: 10:14 General: Appears in no apparent distress. uncomfortable, Behavior is calm, cooperative, jl7 appropriate for age. Pain: Complains of pain in right lower quadrant and left lower quadrant Pain currently is 7 out of 10 on a pain scale. : Reports vaginal bleeding that is bright red, with clots. 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 - Social history:: Smoking status: Patient denies any tobacco usage or history of. Screenin:41 Abuse screen: Denies threats or abuse. Nutritional screening: No deficits noted. kr3 Tuberculosis screening: No symptoms or risk factors identified. Fall Risk None identified. Assessment: 11:33 Reassessment: Patient and/or family updated on plan of care and expected duration. Pain kr3 level reassessed. Patient is alert, oriented x 3, equal unlabored respirations, skin warm/dry/pink. General: Appears in no apparent distress. uncomfortable, Behavior is cooperative, anxious. : Urine is blood tinged, Reports cramping. 12:30 Reassessment: No changes from previously documented assessment. Patient and/or family kr3 updated on plan of care and expected duration. Pain level reassessed. Patient is alert, oriented x 3, equal unlabored respirations, skin warm/dry/pink. 13:30 Reassessment: No changes from previously documented assessment. Patient and/or family kr3 updated on plan of care and expected duration. Pain level reassessed. Patient is alert, oriented x 3, equal unlabored respirations, skin warm/dry/pink. Vital Signs: 10:09 BP 123 / 76; Pulse 100; Resp 17; Temp 97.7; Pulse Ox 100% ; Weight 86.18 kg; Height 5 jl7 ft. 2 in. (157.48 cm); Pain 7/10; 11:33 BP 118 / 82; Pulse 96; Resp 18; Pulse Ox 100% on R/A; kr3 12:29 BP 126 / 92; Pulse 97; Resp 18; Pulse Ox 100% on R/A; kr3 14:10 BP 120 / 86; Pulse 95; Resp 18; Pulse Ox 100% on R/A; kr3 10:09 Body Mass Index 34.75 (86.18 kg, 157.48 cm) jl7 ED Course: 09:52 Patient arrived in ED. am2 10:14 Triage completed. jl7 10:14 Arm band placed on right wrist. jl7 10:17 Niesha Santiago MD is Attending Physician. sd2 10:30 Bed in low position. Call light in reach. Side rails up X 1. kr3 10:33 Naima Browning RN is Primary Nurse. kr3 11:45 Inserted saline lock: 22 gauge in right antecubital area, using aseptic technique. kr3 Blood collected. 12:20 TRANSVAG OB In Process Unspecified. EDMS 16:41 No provider procedures requiring assistance completed. IV discontinued, intact, kr3 bleeding controlled, No redness/swelling at site. Pressure dressing applied. Administered Medications: 11:32 Drug: Ativan (LORazepam) 1 mg Route: PO; kr3 13:17 Follow up: Response: No adverse reaction; RASS: Alert and Calm (0) kr3 13:35 Drug: Tylenol 1000 mg Route: PO; kr3 14:18 Follow up: Response: No adverse reaction kr3 Medication: 16:42 VIS not applicable for this client. kr3 Outcome: 15:29 Discharge ordered by . sd2 15:41 Patient left the ED. kr3 16:42 Discharged to home ambulatory. kr3 16:42 Condition: stable 16:42 Discharge instructions given to patient, Instructed on discharge instructions, follow up and referral plans. Demonstrated understanding of instructions, follow-up care. Signatures: Dispatcher [employer] EDDev Perez RN RN jl7 Leeann Jenkins Stephanie, MD MD sd2 Naima Browning RN RN kr3 Corrections: (The following items were deleted from the chart) 16:42 16:41 Inserted saline lock: 22 gauge in right antecubital area, using aseptic kr3 technique. Blood collected. kr3
--- NOTE | 2022-08-08 15:30 | EDPHYS ---
Physician Documentation [facility] Name: Alka Rao Age: 26 yrs Sex: Female : 1995 Arrival Date: 08/08/2022 Time: 09:52 Bed 16 Private MD: ED Physician Niesha Santiago HPI: 08/08 10:42 This 26 yrs old Female presents to ER via Ambulatory with complaints of sd2 Vaginal Bleeding, Abdominal Cramping. 10:42 26-year-old female with a history of depression and anxiety presents with chief sd2 complaint of vaginal bleeding and abdominal cramping that started last night. She reports that her period was late and she did not have a period the entire month of June. She reports that she normally does not have any cramping or heavy vaginal bleeding with her periods in the past. She states there is a chance that she could be . She denies taking anything for her symptoms at home. She reports she did have some blood clots at home as well. She also endorses associated anxiety. She has stopped taking 2 of her daily anxiety medications and ran out of her home Ativan a couple of days ago. She has not been able to get in touch with her psychiatrist to get a refill.. 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 - Social history:: Smoking status: Patient denies any tobacco usage or history of. ROS: 10:42 Constitutional: Negative for fever, chills, and weight loss, Eyes: Negative for injury, sd2 pain, redness, and discharge, Cardiovascular: Negative for chest pain, palpitations, and edema, Respiratory: Negative for shortness of breath, cough, wheezing. 10:42 MS/Extremity: Negative for injury and deformity, Skin: Negative for injury, rash, and discoloration, Neuro: Negative for headache, numbness and tingling. 10:42 Abdomen/GI: Positive for abdominal cramps, Negative for nausea, vomiting, and diarrhea. Exam: 10:42 Constitutional: This is a well developed, well nourished patient who is awake, alert, sd2 and in no acute distress. Head/Face: Normocephalic, atraumatic. Eyes: EOMI, normal conjunctiva bilaterally Chest/axilla: Normal chest wall appearance and motion. Nontender with no deformity. Cardiovascular: Regular rate and rhythm with a normal S1 and S2. No gallops, murmurs, or rubs. 2+ distal pulses. Respiratory: Lungs have equal breath sounds bilaterally, clear to auscultation and percussion. No rales, rhonchi or wheezes noted. No increased work of breathing, no retractions or nasal flaring. Abdomen/GI: Soft, non-tender, with normal bowel sounds. No guarding or rebound. No evidence of tenderness throughout. Skin: Warm, dry with normal turgor. Normal color with no rashes, no lesions, and no evidence of cellulitis. MS/ Extremity: Pulses equal, no cyanosis. Neurovascular intact. Full, normal range of motion. Ambulatory without difficulty. Psych: Awake, alert, with orientation to person, place and time. Behavior, mood, and affect are within normal limits. Vital Signs: 10:09 BP 123 / 76; Pulse 100; Resp 17; Temp 97.7; Pulse Ox 100% ; Weight 86.18 kg; Height 5 jl7 ft. 2 in. (157.48 cm); Pain 7/10; 11:33 BP 118 / 82; Pulse 96; Resp 18; Pulse Ox 100% on R/A; kr3 12:29 BP 126 / 92; Pulse 97; Resp 18; Pulse Ox 100% on R/A; kr3 14:10 BP 120 / 86; Pulse 95; Resp 18; Pulse Ox 100% on R/A; kr3 10:09 Body Mass Index 34.75 (86.18 kg, 157.48 cm) jl7 MDM: 10:17 Patient medically screened. sd2 10:42 Differential diagnosis: Threatened , incomplete miscarriage, DUB, dysmenorrhea, sd2 anxiety, benzo withdrawal among others. Data reviewed: vital signs, nurses notes. 15:27 Data reviewed: lab test result(s), radiologic studies. Counseling: I had a detailed sd2 discussion with the patient and/or guardian regarding: the historical points, exam findings, and any diagnostic results supporting the discharge/admit diagnosis, lab results, radiology results, the need for outpatient follow up, to return to the emergency department if symptoms worsen or persist or if there are any questions or concerns that arise at home. Medical screen evaluation completed. EMTALA emergency medical condition absent. ED course: Labs and imaging reviewed. UPT positive. hCG remains elevated. US with no evidence of IUP. Pt with no significant abdominal pain at this time. Advised repeat hCG in 48 hours. Pt will attempt to have this performed with her OBGYN or return to the ED if it cannot be followed up on Wednesday.. 08/08 10:17 Order name: CBC with Diff; Complete Time: 11:34 sd2 08/08 10:17 Order name: CMP; Complete Time: 11:34 sd2 08/08 10:17 Order name: Abo/rh Typing; Complete Time: 11:34 sd2 08/08 10:17 Order name: Urine Microscopic Only; Complete Time: 11:34 sd2 08/08 10:59 Order name: Urine Dipstick-Ancillary; Complete Time: 11:34 EDMS 08/08 11:26 Order name: Urine --Ancillary (enter results); Complete Time: 12:38 eb 08/08 10:17 Order name: Urine Test (obtain specimen); Complete Time: 11:13 sd2 08/08 10:17 Order name: Urine Dipstick-Ancillary (obtain specimen); Complete Time: 11:13 sd2 08/08 11:34 Order name: HCG-Quantitative; Complete Time: 15:23 sd2 08/08 12:20 Order name: TRANSVAG OB; Complete Time: 12:38 EDMS Administered Medications: 11:32 Drug: Ativan (LORazepam) 1 mg Route: PO; kr3 13:17 Follow up: Response: No adverse reaction; RASS: Alert and Calm (0) kr3 13:35 Drug: Tylenol 1000 mg Route: PO; kr3 14:18 Follow up: Response: No adverse reaction kr3 Disposition Summary: 08/08/22 15:29 Discharge Ordered Location: Home sd2 Problem: new sd2 Symptoms: have improved sd2 Condition: Stable sd2 Diagnosis - Threatened sd2 - Anxiety disorder, unspecified sd2 Followup: sd2 - With: Private Physician - When: 48 Hours - Reason: Repeat Beta-HCG (48 Hours) Followup: sd2 - With: Emergency Department - When: 48 Hours - Reason: Recheck today's complaints, Continuance of care, Repeat Beta-HCG (48 Hours) Discharge Instructions: - Discharge Summary Sheet sd2 - Threatened Miscarriage sd2 - Vaginal Bleeding During , First Trimester sd2 - Managing Anxiety, Adult sd2 Forms: - Medication Reconciliation Form sd2 - Thank You Letter sd2 - Antibiotic Education sd2 - Prescription Opioid Use sd2 Signatures: Dispatcher [employer] Dev Price RN RN jl7 Niesha Santiago MD MD sd2 Naima Browning RN RN kr3 Corrections: (The following items were deleted from the chart) 12:20 11:38 1st Trimest Single 1st Fetus+US.RAD.BRZ ordered. EDWI EDMS
[2022-08-08 16:16] VITALS: TEMP 97.7; O2SAT 100
[2022-08-08 16:19] VITALS: BP 120/86
== END 2022-08-08 15:41 | disposition home or self-care (01) ==
LOC: ER 09:51
DX: O20.0 Threatened abortion (principal); F41.9 Anxiety disorder, unspecified
CPT/HCPCS: 36415; 76813; 80053; 81003; 81015; 81025; 84702; 85025; 86900; 86901; 99284

== ENCOUNTER 2022-08-10 13:25 | Emergency (ER) | payer OTHER ==
[2022-08-10] MEDS ORDERED: ACETAMINOPHEN 500 MG TAB ONE (14:04)
[2022-08-10 14:17] LABS: Absolute Lymphocytes (CBC) 2.6 K/uL (0.7-4.9); Hematocrit 32.9 % (36.0-45.0); Lymphocytes % 31.4 % (15.3-44.8); MCV 82.5 fL (80-100); MPV 7.9 fL (7.6-11.3); RBC Red Blood Cell Count 3.98 M/uL (3.86-4.86)
[2022-08-10 14:34] LABS: Potassium 3.8 mmol/L (3.5-5.1)
--- NOTE | 2022-08-10 17:19 | ER ---
Nurse's Notes [facility] Name: Alka Rao Age: 26 yrs Sex: Female : 1995 Arrival Date: 08/10/2022 Time: 13:27 Bed 20 Private MD: Diagnosis: Threatened Presentation: 08/10 13:31 Chief complaint: Patient states: I came in two days ago - I think I was having a ld1 miscarriage. Dr told me to come back in two days to recheck HCG levels. Pt reports bleeding has continued with abdominal cramping. Coronavirus screen: At this time, the client does not indicate any symptoms associated with coronavirus-19. Ebola Screen: No symptoms or risks identified at this time. Initial Sepsis Screen: Does the patient meet any 2 criteria? No. Patient's initial sepsis screen is negative. Does the patient have a suspected source of infection? No. Patient's initial sepsis screen is negative. Risk Assessment: Do you want to hurt yourself or someone else? Patient reports no desire to harm self or others. Onset of symptoms was August 10, 2022. 13:31 Method Of Arrival: Ambulatory ld1 13:31 Acuity: SHELIA 4 ld1 Triage Assessment: 13:32 General: Appears in no apparent distress. comfortable, Behavior is calm, cooperative, ld1 appropriate for age. Pain: Denies pain. EENT: No signs and/or symptoms were reported regarding the EENT system. Neuro: Level of Consciousness is awake, alert, obeys commands, Oriented to person, place, time, situation. Cardiovascular: Capillary refill < 3 seconds Patient's skin is warm and dry. Respiratory: Airway is patent Respiratory effort is even, unlabored. GI: Abdomen is round non-distended. : Reports cramping, vaginal bleeding that is. Derm: No signs and/or symptoms reported regarding the dermatologic system. Musculoskeletal: No signs and/or symptoms reported regarding the musculoskeletal system. 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 - Social history:: Smoking status: Patient denies any tobacco usage or history of. Patient/guardian denies using alcohol. Screenin:30 Abuse screen: Denies threats or abuse. Denies injuries from another. Nutritional db screening: No deficits noted. Tuberculosis screening: No symptoms or risk factors identified. Fall Risk None identified. No fall in past 12 months (0 pts). No secondary diagnosis (0 pts). No IV (0 pts). Ambulatory Aid- None/Bed Rest/Nurse Assist (0 pts). Gait- Normal/Bed Rest/Wheelchair (0 pts) Mental Status- Oriented to own ability (0 pts). Total Fernandez Fall Scale indicates No Risk (0-24 pts). Assessment: 15:40 Reassessment: Patient appears in no apparent distress at this time. Patient and/or db family updated on plan of care and expected duration. Pain level reassessed. Patient is alert, oriented x 3, equal unlabored respirations, skin warm/dry/pink. patient states 2 days ago had blood clots with cramping and vaginal bleed. States came back today for her HCG quant redraw. Patient in NAD. States is but does not know how far along Patient denies pain at this time. General: Appears in no apparent distress. comfortable. Pain: Denies pain. Neuro: No deficits noted. Level of Consciousness is awake, alert, obeys commands, Oriented to person, place, time, situation, Appropriate for age Speech is normal, Facial symmetry appears normal. Cardiovascular: No deficits noted. Respiratory: No deficits noted. GI: No deficits noted. No signs and/or symptoms were reported involving the gastrointestinal system. : No deficits noted. No signs and/or symptoms were reported regarding the genitourinary system. EENT: No deficits noted. No signs and/or symptoms were reported regarding the EENT system. Derm: No deficits noted. No signs and/or symptoms reported regarding the dermatologic system. Musculoskeletal: No deficits noted. No signs and/or symptoms reported regarding the musculoskeletal system. Vital Signs: 13:31 BP 122 / 80; Pulse 95; Resp 18; Temp 97.6(O); Pulse Ox 100% on R/A; Weight 86.18 kg; ld1 Height 5 ft. 2 in. (157.48 cm); Pain 0/10; 15:30 BP 128 / 83; Pulse 98; Resp 16; Pulse Ox 100% on R/A; Pain 2/10; db 13:31 Body Mass Index 34.75 (86.18 kg, 157.48 cm) ld1 ED Course: 13:27 Patient arrived in ED. rg4 13:27 Itz Thompson PA is PHCP. cp 13:27 Andrea Jamison MD is Attending Physician. cp 13:32 Triage completed. ld1 13:32 Arm band placed on right wrist. ld1 15:30 Patient has correct armband on for positive identification. Bed in low position. Call db light in reach. Side rails up X 1. 15:30 No provider procedures requiring assistance completed. db 15:39 Stefani Newsome, RN is Primary Nurse. db 16:34 Called lab for HCG Quant update . States lab is running. db 17:16 Primitivo Sanchez MD is Referral Physician. cp Administered Medications: 14:06 Drug: Tylenol 1000 mg Route: PO; ss 16:14 Follow up: Response: No adverse reaction db Medication: 15:40 VIS not applicable for this client. db Outcome: 17:18 Discharge ordered by . cp 19:58 Patient left the ED. ld1 Signatures: Alana Watson, RN RN Itz Thompson PA PA cp Radha Arce rg4 Michell Rosas RN RN ld1 Stefani Newsome RN RN db
--- NOTE | 2022-08-10 17:19 | EDPHYS ---
Physician Documentation [facility] Name: Alka Rao Age: 26 yrs Sex: Female : 1995 Arrival Date: 08/10/2022 Time: 13:27 Bed 20 Private MD: ED Physician Andrea Jamison HPI: 08/10 13:55 This 26 yrs old Female presents to ER via Ambulatory with complaints of cp Recheck HCG Levels. 13:55 The patient presents to the emergency department with abdominal pain, of the lower cp abdomen, vaginal bleeding, that is light, with no clots. course: care: none. Associated signs and symptoms: The patient has no apparent associated signs or symptoms. Patient returns to ED after being seen in this ED 2 days for vaginal bleeding. Patient unsure date last menstrual cycle but reports it was in June. Patient reports vaginal bleeding has continued, is light with no passage of clots. US performed 2 days ago was negative for IUP. 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 - Social history:: Smoking status: Patient denies any tobacco usage or history of. Patient/guardian denies using alcohol. ROS: 14:00 Constitutional: Negative for body aches, chills, fever, poor PO intake. cp 14:00 Eyes: Negative for injury, pain, redness, and discharge. cp 14:00 ENT: Negative for drainage from ear(s), ear pain, sore throat, difficulty swallowing, difficulty handling secretions. 14:00 Cardiovascular: Negative for chest pain, palpitations. 14:00 Respiratory: Negative for cough, shortness of breath, wheezing. 14:00 Abdomen/GI: Positive for abdominal cramps, of the lower abdomen, Negative for nausea and vomiting, constipation. 14:00 Back: Negative for pain at rest, pain with movement. 14:00 : Positive for vaginal bleeding, Negative for urinary symptoms. 14:00 Neuro: Negative for altered mental status, dizziness, headache, numbness, weakness. 14:00 All other systems are negative. Exam: 14:05 Constitutional: The patient appears in no acute distress, alert, awake, non-toxic, well cp developed, well nourished. 14:05 Head/Face: Normocephalic, atraumatic. cp 14:05 Eyes: Periorbital structures: appear normal, Conjunctiva: normal, no exudate, no injection, Sclera: no appreciated abnormality, Lids and lashes: appear normal, bilaterally. 14:05 ENT: External ear(s): are unremarkable, Nose: is normal, Mouth: Lips: moist, Oral mucosa: pink and intact, moist, Posterior pharynx: Airway: no evidence of obstruction, patent. 14:05 Neck: ROM/movement: is normal, is supple, without pain, no range of motions limitations. 14:05 Chest/axilla: Inspection: normal. 14:05 Cardiovascular: Rate: normal, Rhythm: regular. 14:05 Respiratory: the patient does not display signs of respiratory distress, Respirations: normal, no use of accessory muscles, no retractions, labored breathing, is not present, Breath sounds: are clear throughout, no decreased breath sounds, no stridor, no wheezing. 14:05 Abdomen/GI: Inspection: abdomen appears normal, Bowel sounds: normal, in all quadrants, Palpation: soft, in all quadrants, mild abdominal tenderness, in the right lower quadrant and left lower quadrant, rebound tenderness, is not appreciated, involuntary guarding, is not appreciated. 14:05 Back: pain, is absent, ROM is normal, CVA tenderness, is absent. 14:05 Neuro: Orientation: to person, place \T\ time. Mentation: is normal, Motor: moves all fours, strength is normal, Sensation: is normal. Vital Signs: 13:31 BP 122 / 80; Pulse 95; Resp 18; Temp 97.6(O); Pulse Ox 100% on R/A; Weight 86.18 kg; ld1 Height 5 ft. 2 in. (157.48 cm); Pain 0/10; 15:30 BP 128 / 83; Pulse 98; Resp 16; Pulse Ox 100% on R/A; Pain 2/10; db 13:31 Body Mass Index 34.75 (86.18 kg, 157.48 cm) ld1 MDM: 13:48 Patient medically screened. cp 14:00 Differential diagnosis: threatened Ab, inevitable Ab, complete Ab, retained Ab. cp 17:18 Data reviewed: vital signs, nurses notes, old medical records, labs, US report, and cp physician note from previous visit lab test result(s). 17:18 Counseling: I had a detailed discussion with the patient and/or guardian regarding: the cp historical points, exam findings, and any diagnostic results supporting the discharge/admit diagnosis, lab results, radiology results, the need for outpatient follow up, an OB/Gyne specialist, to return to the emergency department if symptoms worsen or persist or if there are any questions or concerns that arise at home. 17:18 ED course: Discussed resulta of today's labs showing decreased beta-hcg that is cp concerning for spontaneous . H/H stable, will discharge to home for continued monitoring and to f/u with OB 1 week. Strict return precautions given. 08/10 13:50 Order name: HCG-Quantitative; Complete Time: 17:01 ld1 08/10 13:56 Order name: Basic Metabolic Panel; Complete Time: 15:10 ld1 08/10 15:10 Interpretation: Normal except: GLUC 111; BUN 6. cp 08/10 13:56 Order name: CBC with Diff; Complete Time: 15:10 ld1 08/10 15:10 Interpretation: Normal except: HGB 11.1; HCT 32.9. cp 08/10 13:56 Order name: Labs collected and sent; Complete Time: 14:03 ld1 08/10 13:56 Order name: NPO; Complete Time: 14:03 ld1 Administered Medications: 14:06 Drug: Tylenol 1000 mg Route: PO; ss 16:14 Follow up: Response: No adverse reaction db Disposition: 08/11 08:16 Co-signature as Attending Physician, Adnrea Jamison MD. rn Disposition Summary: 08/10/22 17:18 Discharge Ordered Location: Home cp Problem: new cp Symptoms: are unchanged cp Condition: Stable cp Diagnosis - Threatened cp Followup: cp - With: Primitivo Sanchez MD - When: 1 week - Reason: Recheck today's complaints Discharge Instructions: - Discharge Summary Sheet cp - Care cp - Threatened Miscarriage cp Forms: - Medication Reconciliation Form cp - Thank You Letter cp - Antibiotic Education cp - Prescription Opioid Use cp Prescriptions: - 147-iron gluc-folic 13 mg iron- 1 mg Oral tablet - take 1 tablet by ORAL route once daily; 30 tablet; Refills: 0, Product cp Selection Permitted Signatures: Dispatcher [employer] EDMS Andrea Jamison MD MD rn Smirch, Shelby, RN RN ss Itz Thompson PA PA cp Michell Rosas RN RN ld1 Stefani Newsome RN db Corrections: (The following items were deleted from the chart) 15:46 08/10 17:18 ED course: Discussed resulta of today's labs showing decreased beta-hcg cp that is concerning for spontaneous . H/H stable, will discharge to home for continued monitoring and to f/u with OB 1 week. cp
[2022-08-11 01:03] VITALS: TEMP 97.6; O2SAT 100
[2022-08-11 01:04] VITALS: BP 128/83
== END 2022-08-10 19:58 | disposition home or self-care (01) ==
LOC: ER 13:25
DX: O20.0 Threatened abortion (principal)
CPT/HCPCS: 36415; 80048; 84702; 85025; 99282

== ENCOUNTER 2023-07-28 07:53 | Emergency (ER) | payer OTHER, SELFPAY ==
[2023-07-28] MEDS ORDERED: IBUPROFEN 200 MG TAB PO ONE (08:20)
[2023-07-28] MEDS ORDERED: ACETAMINOPHEN 325 MG TABLET ONE (08:20)
[2023-07-28] MEDS ORDERED: IBUPROFEN 400 MG TAB ONE (08:20)
--- NOTE | 2023-07-28 08:30 | EDPHYS ---
Physician Documentation [facility] Name: Alka Rao Age: 27 yrs Sex: Female : 1995 Arrival Date: 07/28/2023 Time: 07:53 Bed 12 Private MD: ED Physician Jameson Sewell HPI: 07/28 08:07 This 27 yrs old Female presents to ER via Ambulatory with complaints of Flu sb4 Symptoms. 08:07 patient reports fatigue, headache, body aches, sore throat x 2 days. she states her sb4 daughter had strep throat last week. she states she has not checked her temperature at home. 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 no chest pain, nausea, vomiting, diarrhea. 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 - Social history:: Smoking status: Patient denies any tobacco usage or history of. ROS: 08:07 Cardiovascular: Negative for chest pain, palpitations, and edema, sb4 08:07 Constitutional: Positive for body aches, fatigue, fever, 08:07 ENT: Positive for sore throat, 08:07 Neuro: Positive for headache, 08:07 All other systems are negative, Exam: 08:07 Head/Face: Normocephalic, atraumatic. Eyes: Extra-ocular motions intact. Periorbital sb4 areas with no swelling, redness, or edema. Respiratory: Lungs have equal breath sounds bilaterally, clear to auscultation and percussion. No rales, rhonchi or wheezes noted. No increased work of breathing, no retractions or nasal flaring. Abdomen/GI: Soft, non-tender, no distension. MS/ Extremity: Pulses equal, no cyanosis. Neurovascular intact. Full, normal range of motion. 08:07 Constitutional: The patient appears alert, awake, obviously ill, 08:07 ENT: Posterior pharynx: Tonsils: bilaterally enlarged, with erythema, 08:07 Cardiovascular: Rate: tachycardic, Rhythm: regular, Pulses: no pulse deficits are appreciated, 08:07 Skin: Appearance: Temperature: warm, Vital Signs: 08:01 BP 128 / 86; Pulse 134; Resp 17; Temp 102.5; Pulse Ox 100% on R/A; Pain 8/10; ll1 08:36 Pulse 100; Resp 17; Temp 100.7(O); Pulse Ox 100% ; ll1 08:01 Pain Scale: Adult ll1 MDM: 08:00 Patient medically screened. sb4 08:07 Differential diagnosis: viral Infection, bacterial infection, URI. sb4 08:29 Data reviewed: vital signs, nurses notes, lab test result(s), and as a result, I will sb4 discharge patient. Counseling: I had a detailed discussion with the patient and/or guardian regarding the historical points, exam findings, and any diagnostic results supporting the discharge/admit diagnosis, lab results, to return to the emergency department if symptoms worsen or persist or if there are any questions or concerns that arise at home. 07/28 08:04 Order name: SARS RAPID sb4 07/28 08:04 Order name: Flu; Complete Time: 08:30 sb4 07/28 08:04 Order name: Strep; Complete Time: 08:30 sb4 07/28 08:30 Order name: Throat Culture EDMS Administered Medications: 08:05 Drug: Acetaminophen PO 650 mg PO once Route: PO; ll1 08:53 Follow up: Response: No adverse reaction; Temperature is decreased ll1 08:05 Drug: Ibuprofen PO 600 mg PO once Route: PO; ll1 08:53 Follow up: Response: No adverse reaction; Temperature is decreased ll1 Disposition: 08:46 Co-signature as Attending Physician, Jameson Sewell MD I reviewed the patient's care rt provided by the Advanced Practice Provider and agree with the diagnosis and treatment plan. Disposition Summary: 07/28/23 08:30 Discharge Ordered Notes: Location: Home sb4 Problem: new sb4 Symptoms: have improved sb4 Condition: Stable sb4 Diagnosis - Influenza B sb4 Followup: sb4 - With: Emergency Department - When: As needed - Reason: Trouble breathing, Worsening of condition Discharge Instructions: - Discharge Summary Sheet sb4 - Influenza, Adult, [id number] sb4 Forms: - Work release form sb4 - Medication Reconciliation Form sb4 - Thank You Letter sb4 - Antibiotic Education sb4 - Prescription Opioid Use sb4 - Patient Portal Instructions sb4 - Leadership Thank You Letter sb4 Prescriptions: - Tamiflu 75 mg Oral capsule - take 1 tablet ORAL route every 12 hours for 5 days; 10 tablet; Refills: 0, sb4 Product Selection Permitted Signatures: Dispatcher [employer] Salma Ribera RN RN ll1 Leia Lantigua, PAAlexandra PAAlexandra sb4 Jameson Sewell MD MD rt
--- NOTE | 2023-07-28 08:30 | ER ---
Nurse's Notes [facility] Name: Alka Rao Age: 27 yrs Sex: Female : 1995 Arrival Date: 07/28/2023 Time: 07:53 Bed 12 Private MD: Diagnosis: Influenza B Presentation: 07/28 08:01 Chief complaint: Patient states: Wednesday started feeling ill, fatigue, cough, sore ll1 throat, [place], body aches. Coronavirus screen: Client denies travel out of the [place] in the last 14 days. cough unrelated to allergies, fatigue, fever, headache, sore throat, Client presents with at least one sign or symptom that may indicate coronavirus-19. Standard/surgical mask placed on the client. Ebola Screen: Patient denies travel to an Ebola-affected area in the 21 days before illness onset. Initial Sepsis Screen: Does the patient meet any 2 criteria? No. Patient's initial sepsis screen is negative. Does the patient have a suspected source of infection? Yes: Other: flu. Risk Assessment: Do you want to hurt yourself or someone else? Patient reports no desire to harm self or others. Onset of symptoms was July 26, 2023. 08:01 Method Of Arrival: Ambulatory ll1 08:01 Acuity: SHELIA 4 ll1 Triage Assessment: 08:00 General: Appears uncomfortable, ill, Behavior is calm, cooperative, appropriate for ll1 age. General: Reports feeling ill for fatigue for. Pain: Complains of pain in throat Pain currently is 9 out of 10 on a pain scale. Quality of pain is described as aching. EENT: Reports nasal congestion pain when swallowing. Neuro: Reports headache. Respiratory: Reports cough that is. 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 - Social history:: Smoking status: Patient denies any tobacco usage or history of. Screenin:28 [facility] ED Fall Risk Assessment (Adult) Score/Fall Risk Level 0 - 2 = Low Risk ll1 Oriented to surroundings, Maintained a safe environment, Educated pt \T\ family on fall prevention, incl call for assistance when getting out of bed, Hourly rounding (assess needs \T\ fall precautionary measures) done. Abuse screen: Denies threats or abuse. Nutritional screening: No deficits noted. Tuberculosis screening: No symptoms or risk factors identified. Assessment: 08:24 Reassessment: No changes from previously documented assessment. Patient and/or family ll1 updated on plan of care and expected duration. Pain level reassessed. requests anxiety medication. Karina Lantigua informed. 08:35 Reassessment: No changes from previously documented assessment. Patient and/or family ll1 updated on plan of care and expected duration. Pain level reassessed. Patient is alert, oriented x 3, equal unlabored respirations, skin warm/dry/pink. Vital Signs: 08:01 BP 128 / 86; Pulse 134; Resp 17; Temp 102.5; Pulse Ox 100% on R/A; Pain 8/10; ll1 08:36 Pulse 100; Resp 17; Temp 100.7(O); Pulse Ox 100% ; ll1 08:01 Pain Scale: Adult ll1 ED Course: 07:56 Patient arrived in ED. mg5 07:57 Arm band placed on. ll1 08:00 Leia Lantigua PA-C is PHCP. sb4 08:00 Jameson Sewell MD is Attending Physician. sb4 08:03 Triage completed. ll1 08:04 Salma Vigil, KAYLYNN is Primary Nurse. ll1 08:11 Flu Sent. bc6 08:12 SARS RAPID Sent. bc6 08:12 Strep Sent. bc6 08:28 Patient has correct armband on for positive identification. Bed in low position. Call 1 light in reach. 08:28 No provider procedures requiring assistance completed. ll1 08:53 Provided Education on: n/a. ll1 08:53 Patient did not have IV access during this emergency room visit. ll1 Administered Medications: 08:05 Drug: Acetaminophen PO 650 mg PO once Route: PO; ll1 08:53 Follow up: Response: No adverse reaction; Temperature is decreased ll1 08:05 Drug: Ibuprofen PO 600 mg PO once Route: PO; ll1 08:53 Follow up: Response: No adverse reaction; Temperature is decreased ll1 Medication: 08:28 VIS not applicable for this client. ll1 Outcome: 08:30 Discharge ordered by . sb4 08:36 Patient left the ED. ll1 08:36 Discharged to home ambulatory, ll1 08:36 Condition: stable 08:36 Discharge instructions given to patient, Instructed on discharge instructions, follow up and referral plans. medication usage, Demonstrated understanding of instructions, follow-up care, medications, Prescriptions given X 1, Signatures: Salma Vigil, RN RN ll1 Leia Lantigua, PAAlexandra PAAlexandra sb4 Noa Galeano bc6 So Barboza mg5
[2023-07-28 08:36] LABS: SARS-CoV-2 Antigen Rapid Res Negative (Negative)
[2023-07-28 08:43] VITALS: BP 128/86; TEMP 102.5; O2SAT 100
== END 2023-07-28 08:36 | disposition home or self-care (01) ==
LOC: ER 07:53
DX: J10.1 Influenza due to other identified influenza virus with other respiratory manifestations (principal); Z11.52 Encounter for screening for COVID-19
CPT/HCPCS: 36415; 87070; 87081; 87804; 87811; 99283

== ENCOUNTER 2024-09-12 09:06 | Emergency (ER) | payer OTHER, SELFPAY ==
[2024-09-12 10:00] LABS: SARS-CoV-2 Antigen CONTROL BLUE LINE VIS/BG OK; SARS-CoV-2 Antigen Rapid Res Negative (Negative)
--- NOTE | 2024-09-12 10:19 | EDPHYS ---
Physician Documentation [facility] Name: Alka Rao Age: 28 yrs Sex: Female : 1995 Arrival Date: 09/12/2024 Time: 09:06 Bed IW1 Private MD: ED Physician Andrea Jamison HPI: 09/12 10:16 This 28 yrs old Female presents to ER via Ambulatory with complaints of Flu rn Symptoms. 10:16 The patient presents with sore throat. The patient describes throat pain as raw. Onset: rn The symptoms/episode began/occurred 2 day(s) ago. Severity of symptoms: At their worst the symptoms were mild, in the emergency department the symptoms are unchanged. Associated signs and symptoms: Pertinent negatives fever, rhinorrhea, shortness of breath. The patient has not experienced similar symptoms in the past. Patient reports sore throat and mild congestion for 2 days. No fever but feels chills and myalgias with malaise. No shortness of breath.. 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 - Infectious Disease History:: Denies. - Social history:: Smoking status: Patient denies any tobacco usage or history of. - Family history:: not pertinent. - Hospitalizations: : No recent hospitalization is reported. ROS: 10:16 Constitutional: Negative for fever, positive for chills ENT: Positive for congestion rn and sore throat Cardiovascular: Negative for chest pain, palpitations, and edema, Respiratory: Positive for cough, negative for shortness of breath Abdomen/GI: Negative for abdominal pain, nausea, vomiting, diarrhea, and constipation, Skin: Negative for rash Neuro: Positive for mild headache Exam: 10:16 Constitutional: This is a well developed, well nourished patient who is awake, alert, rn and in no acute distress. Ambulatory to room without difficulty or assistance ENT: Pharyngeal erythema without exudate. Uvula midline, no stridor Neck: Nontender cervical lymphadenopathy, no meningismus Respiratory: No increased work of breathing or retractions, speaking full sentences, ambulatory without dyspnea Vital Signs: 09:30 BP 131 / 91; Pulse 112; Resp 16; Temp 98.3(O); Pulse Ox 98% on R/A; Weight 80.74 kg; ss Pain 0/10; 09:30 Pain Scale: Adult ss MDM: 09:57 Medical Screening Exam initiated rn 10:16 Differential diagnosis: group A strep tonsillitis, influenza, laryngitis, pharyngitis, rn upper respiratory infection, viral syndrome. Data reviewed: vital signs, nurses notes, lab test result(s), and as a result, I will discharge patient. Counseling: I had a detailed discussion with the patient and/or guardian regarding the historical points, exam findings, and any diagnostic results supporting the discharge/admit diagnosis, lab results, the need for outpatient follow up, to return to the emergency department if symptoms worsen or persist or if there are any questions or concerns that arise at home. Special discussion: I discussed with the patient/guardian in detail that at this point there is no indication for admission to the hospital. It is understood, however, that if the symptoms persist or worsen the patient needs to return immediately for re-evaluation. 09/12 09:12 Order name: Flu; Complete Time: 10:14 rn 09/12 09:12 Order name: SARS-COV-2 Antigen Rapid; Complete Time: 10:14 rn 09/12 09:12 Order name: Strep; Complete Time: 10:14 rn Administered Medications: No medications were administered Disposition Summary: 09/12/24 10:18 Discharge Ordered Notes: Location: Home rn Problem: new rn Symptoms: have improved rn Condition: Stable rn Diagnosis - Streptococcal pharyngitis rn Followup: rn - With: Private Physician - When: As needed - Reason: Recheck today's complaints, Re-evaluation by your physician Discharge Instructions: - Discharge Summary Sheet rn - Pharyngitis rn - Strep Throat, Adult rn Forms: - Work release form bd - Medication Reconciliation Form rn - Antibiotic international coordinator - Prescription Opioid Use rn - Patient Portal Instructions rn - Leadership Thank You Letter rn Prescriptions: - Augmentin 875-125 mg Oral Tablet - take 1 tablet ORAL route every 12 hours for 10 days; 20 tablet; Refills: 0, rn Product Selection Permitted Signatures: Dispatcher [employer] Andrea Torres MD MD rn Blanchard, Shelby, RN RN ss Corrections: (The following items were deleted from the chart) 09:13 09:13 Influenza Screen (A \T\ B)+BA.LAB.BRZ ordered. EDMS EDMS SARS-COV-2 Antigen Rapid+I.LAB.BRZ ordered. EDMS EDMS Group A Streptococcus Rapid Sc+BA.LAB.BRZ ordered. EDMS EDMS
--- NOTE | 2024-09-12 10:19 | ER ---
Nurse's Notes [facility] Name: Alka Rao Age: 28 yrs Sex: Female : 1995 Arrival Date: 09/12/2024 Time: 09:06 Bed IW1 Private MD: Diagnosis: Streptococcal pharyngitis Presentation: 09/12 09:30 Chief complaint: Patient states: fatigue that began Wednesday. Coronavirus screen: Client ss denies travel out of the [place] in the last 14 days. Ebola Screen: Patient denies exposure to infectious person. Patient denies travel to an Ebola-affected area in the 21 days before illness onset. Initial Sepsis Screen: Does the patient meet any 2 criteria? No. Patient's initial sepsis screen is negative. Does the patient have a suspected source of infection? No. Patient's initial sepsis screen is negative. Risk Assessment: Do you want to hurt yourself or someone else? Patient reports no desire to harm self or others. Onset of symptoms was September 10, 2024. 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 - Infectious Disease History:: Denies. - Social history:: Smoking status: Patient denies any tobacco usage or history of. - Family history:: not pertinent. - Hospitalizations: : No recent hospitalization is reported. Screenin:53 [facility] ED Fall Risk Assessment (Adult) History of falling in the last 3 months, tm6 including since admission No falls in past 3 months (0 pts) Confusion or Disorientation No (0 pts) Intoxicated or Sedated No (0 pts) Impaired Gait No (0 pts) Mobility Assist Device Used No (0 pt) Altered Elimination No (0 pt) Score/Fall Risk Level 0 - 2 = Low Risk Oriented to surroundings, Maintained a safe environment, Educated pt \T\ family on fall prevention, incl call for assistance when getting out of bed. Abuse screen: Denies threats or abuse. Denies injuries from another. Nutritional screening: No deficits noted. Tuberculosis screening: No symptoms or risk factors identified. Assessment: 10:53 General: Appears in no apparent distress. Behavior is calm, cooperative. Pain: Denies tm6 pain. Neuro: Level of Consciousness is awake, alert, obeys commands, Oriented to person, place, time, situation. Cardiovascular: Patient's skin is warm and dry. Respiratory: Airway is patent Respiratory effort is even, unlabored, Respiratory pattern is regular, symmetrical. GI: No signs and/or symptoms were reported involving the gastrointestinal system. Abdomen is flat, non-distended. : No signs and/or symptoms were reported regarding the genitourinary system. EENT: No signs and/or symptoms were reported regarding the EENT system. Derm: No signs and/or symptoms reported regarding the dermatologic system. Musculoskeletal: Reports fatigue. Vital Signs: 09:30 BP 131 / 91; Pulse 112; Resp 16; Temp 98.3(O); Pulse Ox 98% on R/A; Weight 80.74 kg; ss Pain 0/10; 09:30 Pain Scale: Adult ED Course: 09:09 Patient arrived in ED. sj2 09:12 Andrea Jamison MD is Attending Physician. rn 09:31 Triage completed. ss 09:31 Arm band placed on right wrist. 09:48 Strep Sent. ss 09:48 SARS-COV-2 Antigen Rapid Sent. ss 09:48 Flu Sent. ss 10:00 Patient has correct armband on for positive identification. Provided Education on: tm6 follow up with pcp. 10:00 No provider procedures requiring assistance completed. Patient did not have IV access tm6 during this emergency room visit. Administered Medications: No medications were administered Medication: 10:53 VIS not applicable for this client. tm6 Outcome: 10:00 Discharged to home ambulatory, tm6 10:00 Condition: stable 10:00 Discharge instructions given to patient, Instructed on discharge instructions, follow up and referral plans. medication usage, Demonstrated understanding of instructions, follow-up care, medications, Prescriptions given X 1, 10:18 Discharge ordered by . rn 10:55 Patient left the ED. tm6 Signatures: Andrea Jamison MD MD rn Blanchard, Shelby, RN RN ss Masterson, Tawney, RN RN tm6 [place] sj2
[2024-09-12 11:06] VITALS: BP 131/91; TEMP 98.3; O2SAT 98
== END 2024-09-12 10:55 | disposition home or self-care (01) ==
LOC: ER 09:06
DX: J02.0 Streptococcal pharyngitis (principal); Z11.52 Encounter for screening for COVID-19
CPT/HCPCS: 36415; 87081; 87804; 87811; 99283